=== PATIENT | female | born 1935 | race Caucasian/White ===

== ENCOUNTER 2016-09-07 18:23 | Emergency (ER) | payer OTHER, BC ==
[~2016-09-07] VITALS: Ht 160 cm; Wt 71.4 kg
[~2016-09-07 18:23] MED LIST: ACETAMINOPHEN PO; ASPIRIN PO; CAFFEINE PO; DONEPEZIL HCL5 MG PO; Ecotrin PO; Hydrodiuril,Oretic,E PO; Ocuvite PO; Pepcid PO; SPIRONOLACT/HC1 EACH PO; TOPROL XL50 MG PO; Vitamin B-12 PO; Vitamin D PO
[2016-09-07 20:17] LABS: EOSINOPHIL COUNT 0.3 K/uL (0-0.3); HEMATOCRIT 37.9 % (36.0-46.0); IMMATURE GRANULOCYTE (%) 0.3 % (0.0-0.7); IMMATURE GRANULOCYTE COUNT 0.2 K/uL; LYMPHOCYTE COUNT 1.3 K/uL (1.0-2.8); MCH 30.4 PG (29.0-34.0); MCV 89.4 FL (83-99); MEAN PLAT.VOLUME 9.7 uM^3 (9.5-12.4); MONOCYTE (%) 10.6 % (3-12); MONOCYTE COUNT 0.7 K/uL (0-0.8); NEUTROPHIL COUNT 4.2 K/uL (1.8-6.4); PLATELET COUNT 238 K/uL (156-360); RBC DIS.WIDTH-CV 12.6 % (11.8-14.6); RBC DIS.WIDTH-SD 40.4 % (39-53); RED BLOOD COUNT 4.24 M/uL (3.80-5.20); WHITE BLOOD COUNT 6.5 K/uL (4.1-10.2)
[2016-09-07 20:27] LABS: CHLORIDE 110 mEq/L (99-109); POTASSIUM 4.6 mEq/L (3.7-5.4); SODIUM 143 mEq/L (136-147)
[2016-09-07 20:28] LABS: GLUCOSE 128 mg/dL (70-99)
[2016-09-07 20:29] LABS: ANION GAP 10 MEQ/L (2-14); TOTAL BILIRUBIN 0.3 mg/dL (0.0-1.0)
[2016-09-07 20:31] LABS: GFR ESTIMATE (CALCULATED) > 59 mL/min/
[2016-09-07 20:32] LABS: ALKALINE PHOSPHATASE 90 IU/L (3-129)
[2016-09-07 20:33] LABS: UREA NITROGEN (BUN) 19 mg/dL (9-23)
[2016-09-07 20:35] LABS: SALICYLATE < 5.0 MG/DL (15-30)
[2016-09-07 21:15] LABS: ADD MIUA? YES; BILIRUBIN NEGATIVE; BLOOD SMALL; COLOR YELLOW ((YELLOW)); GLUCOSE (STRIP) NEGATIVE; KETONES NEGATIVE; LEUKOCYTES NEGATIVE; NITRITE NEGATIVE; PROTEIN (STRIP) NEGATIVE; SPECIFIC GRAVITY 1.022 (1.000-1.030)
[2016-09-07 21:27] LABS: INTER. NORMALIZED RATIO 1.1; PROTHROMBIN TIME 10.9 (9.2-11.2); PTT 29.4 (25-32)
[2016-09-07 21:35] LABS: BACTERIA NONE SEEN; CASTS NONE SEEN /LPF; CRYSTALS NONE SEEN; EPITHELIAL CELLS RARE; MUCUS NONE SEEN; PATHOLOGICAL CAST NONE SEEN; RED BLOOD CELLS 15-20 /HPF (0-5); SMALL ROUND CELL NONE SEEN; UCUL ADDED? NO; WHITE BLOOD CELLS 0-5 /HPF (0-5); YEAST-LIKE CELL NONE SEEN
[2016-09-07 23:22] VITALS: BP 131/76
== END 2016-09-07 23:23 | disposition home or self-care (01) ==
LOC: EME 18:23
PROVIDERS: Emergency Medicine
DX: T50.991A Poisoning by other drugs, medicaments and biological substances, accidental (unintentional), initial encounter (principal); F03.90 Unspecified dementia, unspecified severity, without behavioral disturbance, psychotic disturbance, mood disturbance, and anxiety; G20 Parkinson's disease; I10 Essential (primary) hypertension; K21.9 Gastro-esophageal reflux disease without esophagitis
CPT/HCPCS: 80053; 81003; 85025; 85610; 85730; 93005; 99281; 99284; G0480